=== PATIENT | female | born 1980 | race American Indian/Alaskan Native ===

== ENCOUNTER 2018-04-04 02:36 | Emergency (ER) | payer MEDICAID ==
[2018-04-04 04:35] LABS: Hematocrit 36.2 % (30.3-42.9); Hemoglobin 11.8 gm/dl (10.1-14.3); Mean Corpuscular HGB Conc 33 % (30-34); Mean Corpuscular Hemoglobin 27 pg (28-32); Mean Corpuscular Volume 83 fl (79-97); Platelet Count 268 K/mm3 (140-440); Red Blood Count 4.38 M/mm3 (3.65-5.03); Red Cell Distribution Width 15.3 % (13.2-15.2)
[2018-04-04 05:31] LABS: Basophils % (Manual) 0 % (0.0-1.8); Eosinophils % (Manual) 0 % (0.0-4.3); Total Cells Counted 100
[2018-04-04 05:32] LABS: Platelet Estimate Consistent w Auto; RBC Morphology Normal
[2018-04-04 05:58] LABS: Bilirubin,Urine NEG (Negative); Blood,Urine MOD (Negative); Color,Urine Yellow (Yellow); Mucus,Urine FEW /HPF; Protein,Urine <15 mg/dL mg/dL (Negative); Urobilinogen,Urine < 2.0 mg/dL (<2.0)
--- NOTE | 2018-04-04 06:40 | Ultrasound Report ---
FINAL REPORT EXAM: US OB TRANSVAGINAL HISTORY: bleeding COMPARISONS: None. FINDINGS: Transvaginal 1st trimester grayscale, color Doppler and M-mode ultrasound Single living intrauterine with recorded cardiac activity of 166 beats per minute and crown-rump length of 3.2 Centimeters. Estimated gestational age is 10 weeks 0 days corresponding to delivery date of 10/31/2018. Possible small perigestational hemorrhage involves less than 50 percent of the gestational sac surface area. There is no significant free fluid in the pelvis. Ovaries are sonographically unremarkable and measure 2.7 x 1.7 x 2.6 cm on the right and 2.8 x 1.9 x 2.5 cm on the left. IMPRESSION: Single living intrauterine with estimated gestational age of 10 weeks 0 days corresponding to delivery date of 10/31/2018.
--- NOTE | 2018-04-04 06:41 | Ultrasound Report ---
FINAL REPORT EXAM: US OB < = 14 WEEKS FETUS HISTORY: bleeding COMPARISONS: None. FINDINGS: Transabdominal 1st trimester grayscale, color Doppler and M-mode ultrasound Single living intrauterine with recorded cardiac activity of 166 beats per minute and crown-rump length of 3.2 Centimeters. Estimated gestational age is 10 weeks 0 days corresponding to delivery date of 10/31/2018. Possible small perigestational hemorrhage is better demonstrated on transvaginal ultrasound of the same date. There is no significant free fluid in the pelvis. Ovaries are better demonstrated on transvaginal ultrasound of the same date. IMPRESSION: Single living intrauterine with estimated gestational age of 10 weeks 0 days corresponding to delivery date of 10/31/2018. Possible small perigestational hemorrhage is better demonstrated on transvaginal ultrasound of the same date.
[2018-04-04 07:56] VITALS: BP 101/63
--- NOTE | 2018-04-04 08:11 | Emergency Department Report ---
ED Female HPI - General Chief complaint: Vaginal Bleeding Stated complaint: VAGINAL BLEEDING/12WKS PREG Time Seen by Provider: 04/04/18 07:30 Source: patient Mode of arrival: Wheelchair Limitations: No Limitations - History of Present Illness Initial comments: This is a 37-year-old female presents to the emergency room complaining of vaginal bleeding and abdominal pain. This started today. Pain is 7 out of 10 and cramping to pelvic area .patient reports that she is 12 weeks . She has not started care. Denies any vaginal discharge or concern for STD. Patient reports that this started after she had sexual activity today. She denies any urinary burning, frequency or urgency. Denies any nausea or vomiting. Denies any back pain. Denies any fever or chills. Pain is intermittent and no alleviating or exacerbating factor. She says she has not taken any pain medication for pain. MD Complaint: vaginal bleeding, pelvic pain -: Sudden, This morning Radiation: non-radiating Severity: severe Severity scale (0 -10): 7 Quality: cramping Consistency: intermittent Improves with: none Worsens with: none Are you Now?: Yes Last Menstrual Period: 01/26/18 EDC: 11/02/18 Associated Symptoms: vaginal bleeding, abdominal pain. denies: vaginal discharge, nausea/vomiting, fever/chills, headaches, loss of appetite, dysuria, hematuria, rash, seizure, shortness of breath, syncope, weakness - Related Data Sexually active: Yes Previous Rx's Medication Instructions Recorded Last Taken Type Cyclobenzaprine [Flexeril 10 MG 10 mg PO TID PRN #20 tablet 07/08/14 03/02/15 Rx TAB] Cyclobenzaprine [Flexeril 10mg] 10 mg PO TID PRN #30 tablet 03/02/15 Unknown Rx HYDROcodone/APAP 5-325 [Heber 1 each PO Q6HR PRN #20 tablet 03/02/15 Unknown Rx 5/325] Ibuprofen [Motrin] 600 mg PO Q8H PRN #50 tablet 03/02/15 Unknown Rx Sulfamethoxazole/Trimethoprim 1 each PO BID #14 tablet 03/02/15 Unknown Rx [Bactrim Ds] Ferrous Sulfate [Feosol 325 MG tab] 325 mg PO BID #60 tablet 01/18/16 Unknown Rx Ibuprofen [Motrin 600 MG tab] 600 mg PO Q6H #30 tablet 01/18/16 Unknown Rx Vit-Fe Fumar-FA [ 1 tab PO QDAY #30 tablet 04/04/18 Unknown Rx Vitamin] Allergies Allergy/AdvReac Type Severity Reaction Status Date / Time No Known Allergies Allergy Verified 04/04/18 03:28 ED Review of Systems ROS: Stated complaint: VAGINAL BLEEDING/12WKS PREG Other details as noted in HPI Constitutional: denies: chills, fever Eyes: denies: eye pain, eye discharge, vision change ENT: denies: ear pain, throat pain Respiratory: denies: cough, shortness of breath, SOB with exertion, SOB at rest , wheezing Cardiovascular: denies: chest pain, palpitations, edema, syncope, paroxysmal nocturnal dyspnea Gastrointestinal: abdominal pain. denies: nausea, vomiting, diarrhea, constipation Genitourinary: abnormal menses, other (vaginal bleeding). denies: urgency, dysuria, frequency, hematuria, discharge Musculoskeletal: denies: back pain, joint swelling, arthralgia Skin: denies: rash, lesions Neurological: denies: headache, weakness Hematological/Lymphatic: easy bleeding ED Past Medical Hx - Past Medical History Previous Medical History?: Yes Hx Hypertension: No Hx Diabetes: No Hx Deep Vein Thrombosis: No Hx Renal Disease: No Hx Sickle Cell Disease: No Hx Seizures: No Hx Asthma: No Hx HIV: No Additional medical history: Back pain, Vaginal delivery x 2 - Surgical History Past Surgical History?: Yes Hx Appendectomy: Yes - Family History Family history: hypertension - Social History Smoking Status: Never Smoker Substance Use Type: None - Medications Home Medications: Home Medications Medication Instructions Recorded Confirmed Last Taken Type Cyclobenzaprine [Flexeril 10 MG 10 mg PO TID PRN #20 tablet 07/08/14 01/17/16 Rx TAB] Cyclobenzaprine [Flexeril 10mg] 10 mg PO TID PRN #30 tablet 03/02/15 01/17/16 Unknown Rx HYDROcodone/APAP 5-325 [Heber 1 each PO Q6HR PRN #20 tablet 03/02/15 01/17/16 Unknown Rx 5/325] Ibuprofen [Motrin] 600 mg PO Q8H PRN #50 tablet 03/02/15 01/17/16 Unknown Rx Sulfamethoxazole/Trimethoprim 1 each PO BID #14 tablet 03/02/15 01/17/16 Unknown Rx [Bactrim Ds] Ferrous Sulfate [Feosol 325 MG tab] 325 mg PO BID #60 tablet 01/18/16 Unknown Rx Ibuprofen [Motrin 600 MG tab] 600 mg PO Q6H #30 tablet 01/18/16 Unknown Rx Vit-Fe Fumar-FA [ 1 tab PO QDAY #30 tablet 04/04/18 Unknown Rx Vitamin] ED Physical Exam - General Limitations: No Limitations General appearance: alert, in no apparent distress - Head Head exam: Present: atraumatic, normocephalic, normal inspection - Eye Eye exam: Present: normal appearance, PERRL, EOMI Pupils: Present: normal accommodation - ENT ENT exam: Present: normal exam, normal orophraynx, mucous membranes moist, TM's normal bilaterally, normal external ear exam - Neck Neck exam: Present: normal inspection, full ROM. Absent: tenderness, lymphadenopathy - Respiratory Respiratory exam: Present: normal lung sounds bilaterally. Absent: respiratory distress, chest wall tenderness - Cardiovascular Cardiovascular Exam: Present: regular rate, normal rhythm, normal heart sounds. Absent: systolic murmur, diastolic murmur - GI/Abdominal GI/Abdominal exam: Present: soft, normal bowel sounds. Absent: distended, tenderness, guarding, rebound, rigid, organomegaly, mass, bruit, pulsatile mass - Extremities Exam Extremities exam: Present: normal inspection, full ROM, normal capillary refill , other (No cce. + 2 pulses in all extremities, no neurovascular compromise). Absent: tenderness, pedal edema, joint swelling, calf tenderness - Back Exam Back exam: Present: normal inspection, full ROM, other (ambulates without any difficulties). Absent: tenderness, CVA tenderness (R), CVA tenderness (L), muscle spasm, paraspinal tenderness, vertebral tenderness, rash noted - Neurological Exam Neurological exam: Present: alert, oriented X3, normal gait - Psychiatric Psychiatric exam: Present: normal affect, normal mood - Skin Skin exam: Present: warm, dry, intact, normal color. Absent: rash ED Course Vital Signs 04/04/18 04/04/18 03:22 07:54 Temperature 98.6 F Pulse Rate 78 76 Respiratory 16 18 Rate Blood Pressure 124/73 Blood Pressure 101/63 [Right] O2 Sat by Pulse 100 100 Oximetry - Reevaluation(s) Reevaluation #1: 04/04/18 08:40 She is stable throughout ED course. Episode of bleeding and while in the emergency room ED Medical Decision Making - Lab Data Result diagrams: 04/04/18 03:57 Lab Results 04/04/18 04/04/18 04/04/18 Range/Units 03:57 03:57 03:57 WBC 9.6 (4.5-11.0) K/mm3 RBC 4.38 (3.65-5.03) M/mm3 Hgb 11.8 (10.1-14.3) gm/dl Hct 36.2 (30.3-42.9) % MCV 83 (79-97) fl MCH 27 L (28-32) pg MCHC 33 (30-34) % RDW 15.3 H (13.2-15.2) % Plt Count 268 (140-440) K/mm3 Add Manual Diff Complete Total Counted 100 Seg Neuts % (Manual) 65.0 (40.0-70.0) % Band Neutrophils % 0 % Lymphocytes % (Manual) 22.0 (13.4-35.0) % Reactive Lymphs % (Man) 0 % Monocytes % (Manual) 13.0 H (0.0-7.3) % Eosinophils % (Manual) 0 (0.0-4.3) % Basophils % (Manual) 0 (0.0-1.8) % Metamyelocytes % 0 % Myelocytes % 0 % Promyelocytes % 0 % Blast Cells % 0 % Nucleated RBC % Not Reportable Seg Neutrophils # Man 6.2 (1.8-7.7) K/mm3 Band Neutrophils # 0.0 K/mm3 Lymphocytes # (Manual) 2.1 (1.2-5.4) K/mm3 Abs React Lymphs (Man) 0.0 K/mm3 Monocytes # (Manual) 1.2 H (0.0-0.8) K/mm3 Eosinophils # (Manual) 0.0 (0.0-0.4) K/mm3 Basophils # (Manual) 0.0 (0.0-0.1) K/mm3 Metamyelocytes # 0.0 K/mm3 Myelocytes # 0.0 K/mm3 Promyelocytes # 0.0 K/mm3 Blast Cells # 0.0 K/mm3 WBC Morphology Not Reportable Hypersegmented Neuts Not Reportable Hyposegmented Neuts Not Reportable Hypogranular Neuts Not Reportable Smudge Cells Not Reportable Toxic Granulation Not Reportable Toxic Vacuolation Not Reportable Dohle Bodies Not Reportable Pelger-Huet Anomaly Not Reportable Diego Rods Not Reportable Platelet Estimate Consistent w auto Clumped Platelets Not Reportable Plt Clumps, EDTA Not Reportable Large Platelets Not Reportable Giant Platelets Not Reportable Platelet Satelliting Not Reportable Plt Morphology Comment Not Reportable RBC Morphology Normal Dimorphic RBCs Not Reportable Polychromasia Not Reportable Hypochromasia Not Reportable Poikilocytosis Not Reportable Anisocytosis Not Reportable Microcytosis Not Reportable Macrocytosis Not Reportable Spherocytes Not Reportable Pappenheimer Bodies Not Reportable Sickle Cells Not Reportable Target Cells Not Reportable Tear Drop Cells Not Reportable Ovalocytes Not Reportable Helmet Cells Not Reportable Ordaz-[place] Bodies Not Reportable [place] Rings Not Reportable Isatu Cells Not Reportable Bite Cells Not Reportable Crenated Cell Not Reportable Elliptocytes Not Reportable Acanthocytes (Spur) Not Reportable Rouleaux Not Reportable Hemoglobin C Crystals Not Reportable Schistocytes Not Reportable Malaria parasites Not Reportable [place]qu[place] Bodies Not Reportable Hem Pathologist Commnt No HCG, Qual Positive (Negative) HCG, Quant 79993 H (0-4) mIU/mL Urine Color (Yellow) Urine Turbidity (Clear) Urine pH (5.0-7.0) Ur Specific [place] (1.003-1.030) Urine Protein (Negative) mg/dL Urine Glucose (UA) (Negative) mg/dL Urine Ketones (Negative) mg/dL Urine Blood (Negative) Urine Nitrite (Negative) Urine Bilirubin (Negative) Urine Urobilinogen (<2.0) mg/dL Ur Leukocyte Esterase (Negative) Urine WBC (Auto) (0.0-6.0) /HPF Urine RBC (Auto) (0.0-6.0) /HPF Urine Mucus /HPF Blood Type Antibody Screen 04/04/18 04/04/18 Range/Units 03:57 Unknown WBC (4.5-11.0) K/mm3 RBC (3.65-5.03) M/mm3 Hgb (10.1-14.3) gm/dl Hct (30.3-42.9) % MCV (79-97) fl MCH (28-32) pg MCHC (30-34) % RDW (13.2-15.2) % Plt Count (140-440) K/mm3 Add Manual Diff Total Counted Seg Neuts % (Manual) (40.0-70.0) % Band Neutrophils % % Lymphocytes % (Manual) (13.4-35.0) % Reactive Lymphs % (Man) % Monocytes % (Manual) (0.0-7.3) % Eosinophils % (Manual) (0.0-4.3) % Basophils % (Manual) (0.0-1.8) % Metamyelocytes % % Myelocytes % % Promyelocytes % % Blast Cells % % Nucleated RBC % Seg Neutrophils # Man (1.8-7.7) K/mm3 Band Neutrophils # K/mm3 Lymphocytes # (Manual) (1.2-5.4) K/mm3 Abs React Lymphs (Man) K/mm3 Monocytes # (Manual) (0.0-0.8) K/mm3 Eosinophils # (Manual) (0.0-0.4) K/mm3 Basophils # (Manual) (0.0-0.1) K/mm3 Metamyelocytes # K/mm3 Myelocytes # K/mm3 Promyelocytes # K/mm3 Blast Cells # K/mm3 WBC Morphology Hypersegmented Neuts Hyposegmented Neuts Hypogranular Neuts Smudge Cells Toxic Granulation Toxic Vacuolation Dohle Bodies Pelger-Huet Anomaly [place] Rods Platelet Estimate Clumped Platelets Plt Clumps, EDTA Large Platelets Giant Platelets Platelet Satelliting Plt Morphology Comment RBC Morphology Dimorphic RBCs Polychromasia Hypochromasia Poikilocytosis Anisocytosis Microcytosis Macrocytosis Spherocytes Pappenheimer Bodies Sickle Cells Target Cells Tear Drop Cells Ovalocytes Helmet Cells Ordaz-[place] Bodies [place] Rings Isatu Cells Bite Cells Crenated Cell Elliptocytes Acanthocytes (Spur) Rouleaux Hemoglobin C Crystals Schistocytes Malaria parasites Daquan Bodies Hem Pathologist Commnt HCG, Qual (Negative) HCG, Quant (0-4) mIU/mL Urine Color Yellow (Yellow) Urine Turbidity Clear (Clear) Urine pH 6.0 (5.0-7.0) Ur Specific [place] 1.019 (1.003-1.030) Urine Protein <15 mg/dl (Negative) mg/dL Urine Glucose (UA) Neg (Negative) mg/dL Urine Ketones Neg (Negative) mg/dL Urine Blood Mod (Negative) Urine Nitrite Neg (Negative) Urine Bilirubin Neg (Negative) Urine Urobilinogen < 2.0 (<2.0) mg/dL Ur Leukocyte Esterase Neg (Negative) Urine WBC (Auto) 3.0 (0.0-6.0) /HPF Urine RBC (Auto) 3.0 (0.0-6.0) /HPF Urine Mucus Few /HPF Blood Type O POSITIVE Antibody Screen Negative - Radiology Data Radiology results: report reviewed Findings [address] [address] Ultrasound Report Signed Patient: AMPARO RENEE MR#: [id number] : 1980 Acct:[id number] Age/Sex: 37 / F ADM Date: 04/04/18 Loc: ED Attending Dr: Ordering Physician: ED MD MEI Date of Service: 04/04/18 Procedure(s): US OB transvaginal Accession Number(s): [id number] cc: ED MD MEI FINAL REPORT EXAM: US OB TRANSVAGINAL HISTORY: bleeding COMPARISONS: None. FINDINGS: Transvaginal 1st trimester grayscale, color Doppler and M-mode ultrasound Single living intrauterine with recorded cardiac activity of 166 beats per minute and crown-rump length of 3.2 Centimeters. Estimated gestational age is 10 weeks 0 days corresponding to delivery date of 10/31/2018. Possible small perigestational hemorrhage involves less than 50 percent of the gestational sac surface area. There is no significant free fluid in the pelvis. Ovaries are sonographically unremarkable and measure 2.7 x 1.7 x 2.6 cm on the right and 2.8 x 1.9 x 2.5 cm on the left. IMPRESSION: Single living intrauterine with estimated gestational age of 10 weeks 0 days corresponding to delivery date of 10/31/2018. Transcribed By: MB Dictated By: RITA CEBALLOS MD Electronically Authenticated By: RITA CEBALLOS MD Signed Date/Time: 04/04/18634 DD/ 4 TD/TT: 04/04/[address] [address] Ultrasound Report Signed Patient: AMPARO RENEE MR#: [id number] : 1980 Acct:[id number] Age/Sex: 37 / F ADM Date: 04/04/18 Loc: ED Attending Dr: Ordering Physician: COLLEEN HURLEY MD Date of Service: 04/04/18 Procedure(s): US OB <= 14 weeks fetus Accession Number(s): [id number] cc: COLLEEN HURLEY MD FINAL REPORT EXAM: US OB lt; = 14 WEEKS FETUS HISTORY: bleeding COMPARISONS: None. FINDINGS: Transabdominal 1st trimester grayscale, color Doppler and M-mode ultrasound Single living intrauterine with recorded cardiac activity of 166 beats per minute and crown-rump length of 3.2 Centimeters. Estimated gestational age is 10 weeks 0 days corresponding to delivery date of 10/31/2018. Possible small perigestational hemorrhage is better demonstrated on transvaginal ultrasound of the same date. There is no significant free fluid in the pelvis. Ovaries are better demonstrated on transvaginal ultrasound of the same date. IMPRESSION: Single living intrauterine with estimated gestational age of 10 weeks 0 days corresponding to delivery date of 10/31/2018. Possible small perigestational hemorrhage is better demonstrated on transvaginal ultrasound of the same date. Transcribed By: MB Dictated By: RITA CEBALLOS MD Electronically Authenticated By: RITA CEBALLOS MD Signed Date/Time: 04/04/18635 DD/ 5 TD/TT: 04/04/18635 - Medical Decision Making This is a 37-year-old patient here reports that she experienced vaginal bleeding after having sexual activity this morning. She states she is 12 weeks and she is here to be evaluated She was seen and examined by myself. Physical findings and normal exam. Patient says she is having pelvic cramping and but none with palpation. No vaginal bleeding since she came to the emergency room she said had one episode without any clots. The patient had lab work done to include CBC, type and screen and urinalysis which are all stable. Her hormone and qualitative test were positive. Patient had ultrasound done which was dictated by radiologist and report reviewed by myself. This shows single living intrauterine with estimated gestational age of 10 weeks. Her heart activity is a 166 bpm. There is possible small blanca-gestational hemorrhage. I discussed lab results and ultrasound result with patient and she voiced understanding. I discussed with her that she needs to start care and I gave her Dr. Alexia Leos who is [facility] labor contractor for follow-up visit. She voiced understanding. Patient with pelvic pain, threatened miscarriage, vaginal bleeding. She was referred to Dr. Alexia Leos. Ultrasound and lab work are stable. Discussed with her that she needs to avoid strenuous activity and an eccentric aggressive sexual activity. I also discussed with her that she needs to have pelvic rest for at least 3 days. I discussed with her that she needs to follow up with [facility] to start care and prescription given for vitamin. Patient discharged home in stable condition with prescription for vitamin. Vital signs are stable , she is afebrile and nontoxic in appearance and she voiced understanding of need to follow-up, avoid strenuous activity and take vitamin. - Differential Diagnosis ectopic , threatened miscarriage, , round ligament pain Critical care attestation.: If time is entered above; I have spent that time in minutes in the direct care of this critically ill patient, excluding procedure time. ED Disposition Clinical Impression: Threatened in early , Pelvic pain, Vaginal bleeding before 22 weeks gestation Disposition: DC-01 TO HOME OR SELFCARE Is pt being admited?: No Does the pt Need Aspirin: No Condition: Stable Instructions: Threatened Miscarriage (ED), Abdominal Pain in (ED) Additional Instructions: Please follow up with [facility] in 4 days as instructed If you develop recurrent vaginal bleeding, abdominal pain and passing clots, please return to the emergency room MAHESH Increasing her fluid intake Take vitamin as instructed Follow-up with Dr. Alexia Leos who is [facility]. refrain from doing any strenuous activity You will need to have your serum hCG which is a hormone tests done in 4 days so please present to [facility] to have repeat testing and if he cannot have this IUD [facility] that he can return to the emergency room to have this done. Prescriptions: Vit-Fe Fumar-FA [ Vitamin] 1 tab PO QDAY #30 tablet Referrals: PIPO LEOS MD [Staff Physician] - 04/05/18 Forms: Work/School Release Form(ED)
== END 2018-04-04 09:05 | disposition home or self-care (01) ==
LOC: ED 02:36
DX: O20.0 Threatened abortion (principal); Z3A.10 10 weeks gestation of pregnancy; Z90.49 Acquired absence of other specified parts of digestive tract
CPT/HCPCS: 36415; 76801; 76817; 81001; 84702; 84703; 85007; 85025; 86850; 86900; 86901; 99284

== ENCOUNTER 2018-10-20 04:29 | Inpatient (IN) | payer MEDICAID ==
[2018-10-20] MEDS ORDERED: LACTATED RINGERS 1,000 ML IV SCH (05:00)
[2018-10-20] MEDS ORDERED: XYLOCAINE 2% INFILTRATI ONE (05:38)
[2018-10-20] MEDS ORDERED: BRETHINE IVP PRN (05:38)
[2018-10-20] MEDS ORDERED: BRETHINE SUB-Q PRN (05:38)
[2018-10-20] MEDS ORDERED: STADOL IV PRN (05:38)
[2018-10-20] MEDS ORDERED: PHENERGAN PO PRN ×2 (05:38→10:36)
--- NOTE | 2018-10-20 05:38 | History and Physical Report ---
History of Present Illness Date of examination: 10/20/18 Date of admission: 10/20/18 05:10 History of present illness: Patient presented to labor and delivery complaining of regular contractions. Initial exam by RN in triage patient was 6 cm. Patient's management admitted for management of active labor. Patient's course complicated by abnormal alpha-fetoprotein test with increased risk of Down syndrome and advanced maternal age. Menstrual History Regularity: irregular Menses every: 35 days Duration: 5 LMP: 01/26/2018 LMP reliability: definite LMP character: mechanic chief test type: urine test Date: 05/06/2018 BC at conception: none EDC Calculations LMP: 11/02/2018 EDC Confirmation: 11/02/2018 Past History : 4 Term Births: 3 Living Children: 3 Para: 3 # 1 Delivery date: 2005 Weeks Gestation: 38 labor: no Delivery type: Delivery location: [facility] Sex: Male weight: 5-4 # 2 Delivery date: 2010 Weeks Gestation: ft Delivery type: Anesthesia type: none Delivery location: [facility] Sex: Male weight: 6-0 # 3 Delivery date: 2016 Weeks Gestation: FT Delivery type: Anesthesia type: none Delivery location: [facility] Infant Sex: Female weight: 6-0 Past Medical History: Negative Past Medical History Past Surgical History: Appendectomy Past Medical History Abnormal PAP: negative DWAYNE Exposure: negative Infertility: negative Uterine Anomaly: negative Uterine Surgery (not C/S): negative Other Gynecologic Problems: negative Medical History Comments: negative Social Hx: Patient is single no etoh, no illicit drug use, no tobacco use Infection History Hx of STD: chlamydia,GC, trich Personal hx. of genital herpes: yes Varicella/Chicken Pox Status: Previous Disease Genetic History ADVANCED MATERNAL AGE Congenital Heart Defect: Mom: no Dad: no Renee Disease: Mom: no Dad: no Thalassemia Mom: no Dad: no Neural Tube Defect Mom: no Dad: no Down's Syndrome Mom: no Dad: no Betito-Sachs Mom: no Dad: no Sickle Cell Disease/Trait Mom: no Dad: no Hemophilia Mom: no Dad: no Muscular Dystrophy Mom: no Dad: no Cystic Fibrosis Mom: no Dad: no Irving Chorea Mom: no Dad: no Mental Retardation Mom: no Dad: no Fragile X Mom: no Dad: no Other Genetic/Chromosomal Disorder Mom: no Dad: no Child w/other defect Mom: no Dad: no Enviromental Exposures Xray Exposure: no Medication, drug, or alcohol use since LMP: no Chemical/Other Exposure: no Exposure to Cat Liter: no Hx of Parvovirus (Fifth Disease): no Occupational Exposure to Children: none Current Allergies (reviewed today): * PENICILLAN (Mild) Past History Past Medical History: no pertinent history Past Surgical History: appendectomy [employer] History: abnormal PAP smear Family/Genetic History: other (see HPI) Social history: other (see HPI) - Obstetrical History Expected Date of Delivery: 11/02/18 Actual Gestation: 38 Week(s) 1 Day(s) : 4 Para: 3 Hx # Term Pregnancies: 3 Number of Pregnancies: 0 Spontaneous Abortions: 0 Induced : 0 Number of Living Children: 3 Medications and Allergies Allergies Allergy/AdvReac Type Severity Reaction Status Date / Time No Known Allergies Allergy Verified 04/04/18 03:28 Home Medications Medication Instructions Recorded Confirmed Last Taken Type Cyclobenzaprine [Flexeril 10 MG 10 mg PO TID PRN #20 tablet 07/08/14 01/17/16 03/02/15 Rx TAB] Cyclobenzaprine [Flexeril 10mg] 10 mg PO TID PRN #30 tablet 03/02/15 01/17/16 Unknown Rx HYDROcodone/APAP 5-325 [[place] 1 each PO Q6HR PRN #20 tablet 03/02/15 01/17/16 Unknown Rx 5/325] Ibuprofen [Motrin] 600 mg PO Q8H PRN #50 tablet 03/02/15 01/17/16 Unknown Rx Sulfamethoxazole/Trimethoprim 1 each PO BID #14 tablet 03/02/15 01/17/16 Unknown Rx [Bactrim Ds] Ferrous Sulfate [Feosol 325 MG tab] 325 mg PO BID #60 tablet 01/18/16 Unknown Rx Ibuprofen [Motrin 600 MG tab] 600 mg PO Q6H #30 tablet 01/18/16 Unknown Rx Vit-Fe Fumar-FA [ 1 tab PO QDAY #30 tablet 04/04/18 Unknown Rx Vitamin] Active Meds: Active Medications Lactated Ringer's (Lactated Ringers) 1,000 mls @ 125 mls/hr IV DIRECT KHOA - Vital Signs Vital signs: Vital Signs Temp Pulse Resp BP 98.5 F 100 H 20 136/78 10/20/18 04:46 10/20/18 04:46 10/20/18 04:46 10/20/18 04:46 Temp Pulse Resp BP Pulse Ox 96.1 F L 100 H 18 134/81 10/20/18 05:15 10/20/18 05:15 10/20/18 05:15 10/20/18 05:15 - Physical Exam Breasts: Positive: deferred Cardiovascular: Regular rate Lungs: Positive: Normal air movement Genitourinary (Female): Positive: normal external genitalia Uterus: Positive: enlarged Anus/Rectum: Positive: normal perianal skin Extremities: Positive: edema - Obstetrical FHR: category 1 Uterine Contraction Pattern: Regular Uterine Contraction Intensity: Strong/Firm Results Result Diagrams: 10/20/18 06:09 All other labs normal. Assessment and Plan - Patient Problems (1) Advanced maternal age (AMA) in Current Visit: Yes Status: Acute (2) Abnormal alpha fetoprotein screen Current Visit: Yes Status: Acute (3) Body mass index (bmi) 34.0-34.9, adult Current Visit: Yes Status: Acute (4) Active labor at term Current Visit: Yes Status: Acute Plan to address problem: We'll admit and follow labor protocol. See orders.
[2018-10-20] MEDS ORDERED: PITOCin/NS 20 UNIT/1000ML DRIP 20 UNITS/1,000 ML BAG IV SCH (06:00)
[2018-10-20] MEDS: LACTATED RINGERS 1,000 ML IV SCH ×2 (06:05→06:12)
[2018-10-20 06:44] LABS: Hematocrit 31.9 % (30.3-42.9); Mean Corpuscular HGB Conc 31 % (30-34); Mean Corpuscular Volume 79 fl (79-97); Platelet Count 254 K/mm3 (140-440); Red Blood Count 4.04 M/mm3 (3.65-5.03); Red Cell Distribution Width 15.7 % (13.2-15.2)
--- NOTE | 2018-10-20 08:17 | Procedure Note ---
OB Delivery Note - Delivery Date of Delivery: 10/20/18 Surgeon: JAMIR JULIAN Estimated blood loss: 300cc - Vaginal Delivery position: OA Intrapartum events: none Delivery induction: none Delivery augmentation: rupture of membranes Delivery monitor: external FHT, external uterine Route of delivery: Delivery placenta: spontaneous Delivery cord: 3 umbilical vessels Episiotomy: none Delivery laceration: none - Infant A at 1 minute: 7 at 5 minutes: 8 Infant Gender: Female (5lbs 14oz)
[2018-10-20 09:21] LABS: Basophils % (Manual) 0 % (0.0-1.8); Total Cells Counted 100
[2018-10-20 09:23] LABS: Tear Drop Cells Few
[2018-10-20 09:24] LABS: Platelet Estimate Consistent w Auto
[2018-10-20] MEDS ORDERED: SODIUM CHLORIDE FLUSH SYRINGE 10 ML IV NR (10:36)
[2018-10-20] MEDS ORDERED: DULCOLAX PR PRN (10:36)
[2018-10-20] MEDS ORDERED: MILK OF MAGNESIA PO PRN (10:36)
[2018-10-20] MEDS ORDERED: TUCKS PAD TP PRN (10:36)
[2018-10-20] MEDS ORDERED: TYLENOL PO PRN (10:36)
[2018-10-20] MEDS ORDERED: BENADRYL PO PRN (10:36)
[2018-10-20] MEDS ORDERED: NORCO 5/325 PO PRN (10:36)
[2018-10-20] MEDS ORDERED: LANSINOH TP PRN (10:36)
[2018-10-20] MEDS: IBUPROFEN PO SCH ×2 (11:15→17:33)
[2018-10-20] MEDS: PRENATAL VITAMIN PO SCH (11:16)
[2018-10-20] MEDS: COLACE PO SCH ×2 (11:16→22:32)
[2018-10-20 21:33] LABS: Hematocrit 30.2 % (30.3-42.9); Hemoglobin 9.7 gm/dl (10.1-14.3)
[2018-10-21 00:02] LABS: Bilirubin,Urine NEG (Negative); Blood,Urine LG (Negative); Color,Urine Yellow (Yellow); Mucus,Urine FEW /HPF; Protein,Urine <15 mg/dL mg/dL (Negative); Urobilinogen,Urine < 2.0 mg/dL (<2.0)
[2018-10-21 00:03] LABS: RBC,Urine > 182.0 /HPF (0.0-6.0)
[2018-10-21] MEDS: IBUPROFEN PO SCH ×3 (00:18→15:14)
--- NOTE | 2018-10-21 06:12 | Discharge Summary ---
Providers - Providers Date of Admission: 10/20/18 05:10 Date of discharge: 10/21/18 (pt agrees with d/c; will be dependent on NB's d/c) Attending physician: JAMIR JULIAN 10/20/18 10:36 Consult to Vp Cardiovascular [CONS] Routine Reason For Exam: assistance with , SNS Primary care physician: JAMIR JULIAN Hospitalization Reason for admission: active labor Delivery: Episiotomy: none Laceration: none Incision: normal Other procedures: none complications: none Discharge diagnosis: IUP at term delivered baby: female Hospital course: Uncomplicated vaginal delivery Pt w/o complaint VSS FF below umb Lochia small perineum intact H&H 06/09 drop r/t blood loss from delivery Pt is w/o s/sx of anemia Doing well s/p vag delivery P: D/C today with instructions RTO 4 weeks PP care Condition at discharge: Good Disposition: DC-01 TO HOME OR SELFCARE - Discharge Diagnoses (1) Normal spontaneous vaginal delivery Status: Acute Comment: RTO 4 weeks PP care Plan - Provider Discharge Summary Activity: routine, no sex for 6 weeks, no heavy lifting 4 weeks, no strenuous exercise Diet: routine Instructions: routine Additional instructions: [] Smoking cessation referral if applicable(refer to patient education folder for contact #) [] Refer to [facility] Booklet Call your doctor immediately for: * Fever > 100.5 * Heavy vaginal bleeding ( >1 pad per hour) * Severe persistent headache * Shortness of breath * Reddened, hot, painful area to leg or breast * Drainage or odor from incision. * Keep incision clean and dry at all times and follow doctor's instructions regarding bathing/showering - Follow up plan Follow up: JAMIR JULIAN MD [Primary Care Provider] - 11/18/18 (Congratulations! Please call [phone] to schedule your appointment in 4 weeks. Motrin/ibuprofen for cramping/pain. Call with concerns.)
[2018-10-21] MEDS: PRENATAL VITAMIN PO SCH (10:56)
[2018-10-21] MEDS: COLACE PO SCH (10:56)
[2018-10-22] MEDS: IBUPROFEN PO SCH ×2 (00:09→06:42)
[2018-10-22] MEDS: COLACE PO SCH (00:19)
[2018-10-22 09:07] VITALS: BP 116/61
== END 2018-10-22 11:45 | disposition home or self-care (01) | DRG 775 ==
LOC: TRG 04:29 → LD 05:10 → OB 10:14
PROVIDERS: ADMIT Obstetrics & Gynecology; ATTEND Obstetrics & Gynecology
PROC: 10E0XZZ Delivery of Products of Conception, External Approach (ICD-10-PCS; principal; 2018-10-20)
DX: O80 Encounter for full-term uncomplicated delivery (principal); Z3A.38 38 weeks gestation of pregnancy; Z37.0 Single live birth
CPT/HCPCS: 36415; 81001; 85007; 85014; 85018; 85025; 86592; 86850; 86900; 86901; G0378; J0595; J2590; J7120

== ENCOUNTER 2019-10-01 11:05 | Emergency (ER) | payer MEDICAID ==
[2019-10-01 12:15] VITALS: BP 139/80
--- NOTE | 2019-10-01 12:18 | Event Note ---
ED Screening Note Date of service: 10/01/19 Time: 12:11 ED Screening Note: 38 y o female presents with cc of feeling nausea and vomiting thinking she might be states LMP 09/11/19. She denies any other symptoms all systems reviewed and negative This initial assessment/diagnostic orders/clinical plan/treatment(s) is/are subject to change based on patients health status, clinical progression and re- assessment by fellow clinical providers in the ED. Further treatment and workup at subsequent clinical providers discretion. Patient/guardian urged not to elope from the ED as their condition may be serious if not clinically assessed and managed. Initial orders include: Pt presents with a non-medical emergency Examination is normal, Vital sign are stable Pt given information for clinics to follow up with [facility] and [facility] for tests and for further treatment and evaluation Also discussed strict return precautions in detail with pt who verbalized understanding
== END 2019-10-01 13:00 | disposition left against medical advice (07) ==
LOC: ED 11:05
DX: R42 Dizziness and giddiness (principal); Z53.21 Procedure and treatment not carried out due to patient leaving prior to being seen by health care provider